=== PATIENT | male | born 1975 | race Caucasian/White ===

== ENCOUNTER 2017-01-26 23:21 | Emergency (ER) | payer BC, SELFPAY ==
[~2017-01-26] VITALS: Ht 167.6 cm; Wt 82.0 kg
[2017-01-27 00:11] LABS: MEAN CORPUSCULAR HEMOGLOBIN 32.4 pg (27.0-33.0); MEAN CORPUSCULAR HGB CONC 35.5 g/dl (32.0-36.5); MEAN CORPUSCULAR VOLUME 91.5 fl (80.0-96.0); RED CELL DISTRIBUTION WIDTH 12.5 % (11.5-14.5); WHITE BLOOD COUNT 6.8 K/mm3 (4.0-10.0)
[2017-01-27 00:36] LABS: METHADONE URINE NEGATIVE (NEGATIVE)
[2017-01-27 00:45] LABS: ALBUMIN 4.4 GM/DL (3.2-5.2); ALBUMIN/GLOBULIN RATIO 1.26 (1.00-1.93); ALKALINE PHOSPHATASE 78 U/L (45-117); ANION GAP 9 MEQ/L (8-16); AST/SGOT 23 U/L (15-37); BILIRUBIN,DIRECT < 0.1 MG/DL (0.0-0.2); BILIRUBIN,TOTAL 0.3 MG/DL (0.2-1.0); BLOOD UREA NITROGEN 12 MG/DL (7-18); CALCIUM LEVEL 8.7 MG/DL (8.5-10.1); CARBON DIOXIDE LEVEL 26 MEQ/L (21-32); CHLORIDE LEVEL 105 MEQ/L (98-107); CREATININE FOR GFR 1.21 MG/DL (0.70-1.30); GLOMERULAR FILTRATION RATE > 60.0 (>60); GLUCOSE, FASTING 101 MG/DL (70-105); POTASSIUM SERUM 4.2 MEQ/L (3.5-5.1); SODIUM LEVEL 140 MEQ/L (136-145); TOTAL PROTEIN 7.9 GM/DL (6.4-8.2)
[2017-01-27 00:55] VITALS: BP 134/80
[2017-01-27 00:57] LABS: ALT/SGPT 48 U/L (12-78)
== END 2017-01-27 00:57 | disposition home or self-care (01) ==
LOC: M ED 23:21
DX: F10.129 Alcohol abuse with intoxication, unspecified (principal); F43.0 Acute stress reaction; Z87.891 Personal history of nicotine dependence
CPT/HCPCS: 80048; 80076; 80307; 84443; 85027; 99284; G0480